=== PATIENT | male | born 1940 | race Caucasian/White ===

== ENCOUNTER 2016-09-16 09:18 | Day surgery (SDC) | payer MEDICARE ==
[~2016-09-16] VITALS: Ht 172.7 cm
--- NOTE | 2016-09-18 08:02 | OR ---
ADMIT: 09/16/2016 RM/LOC: [facility] MR#: [id number] [address] [place] [address] Operative/Delivery Room Report SEX: M AGE: 76 : 1940 SURGERY DATE: 09/16/2016 SURGEON: Gavi Cruz MD MEDICAL ADMINISTRATIVE TECHNICIAN: None. PREPROCEDURE DIAGNOSES: 1. Cervical disc degeneration. 2. Cervical neuritis. 3. Cervicalgia. POSTPROCEDURE DIAGNOSES: 1. Cervical disc degeneration. 2. Cervical neuritis. 3. Cervicalgia. PROCEDURE PERFORMED: Cervical epidural steroid injection C6-C7 level. INDICATIONS FOR PROCEDURE: The patient is pleasant gentleman with history of chronic neck pain with radicular symptoms, comes here for planned cervical epidural steroid injection. ANESTHESIA: Local without sedation. ESTIMATED BLOOD LOSS: Zero. COMPLICATIONS: None immediately evident. DESCRIPTION OF PROCEDURE: After the patient was seen in the preoperative area, vitals signs were taken. Prior to the procedure, the risks, benefits, and alternative therapies were discussed at length. Patient consent was obtained and updated. The patient was taken to the fluoroscopy suite and placed on the fluoroscopy table in the prone position. Pressure points were padded to comfort, monitors applied, and a timeout performed. Once adequate anesthesia of the skin over the cervical spine was achieved, the spine was prepped with ChloraPrep and draped in a sterile fashion. Under ADMIT: 09/16/2016 RM/LOC: [facility] MR#: [id number] [address] [place] [address] Operative/Delivery Room Report SEX: M AGE: 76 : 1940 fluoroscopic guidance, a 20-gauge 3.5-inch Tuohy needle was passed through the anesthetized skin to the C6-C7 epidural space using a continuous loss of resistance to saline technique. The needle placement in the epidural space was confirmed by loss of resistance to saline and then injection of 2 mL of Isovue 300, which showed a clear epidural pattern with spread of contrast as high as C2. At this time, 4 mL of solution containing 80 mg of methylprednisolone and preservative-free normal saline were injected. The patient tolerated the procedure well and was discharged to postanesthesia recovery where he continued to recover without difficulty. PLAN: Discharge instructions were given, followup scheduled. The patient was discharged home with a test driver. Gavi Cruz MD/ yobany JOB #: [id number] CC: Gavi Cruz, Attending Physician Amna Elias, Family Physician
== END 2016-09-16 10:32 | disposition home or self-care (01) ==
LOC: SSS 09:18
PROC: 3E0R33Z Introduction of Anti-inflammatory into Spinal Canal, Percutaneous Approach (ICD-10-PCS; principal; 2016-09-16)
DX: G89.29 Other chronic pain (principal); M50.123 Cervical disc disorder at C6-C7 level with radiculopathy; M48.02 Spinal stenosis, cervical region; I10 Essential (primary) hypertension; E78.00 Pure hypercholesterolemia, unspecified; E11.9 Type 2 diabetes mellitus without complications; Z79.82 Long term (current) use of aspirin; Z79.899 Other long term (current) drug therapy; Z98.49 Cataract extraction status, unspecified eye; Z95.1 Presence of aortocoronary bypass graft; Z98.890 Other specified postprocedural states